=== PATIENT | male | born 1965 | race Caucasian/White ===

== ENCOUNTER 2018-11-09 10:09 | Emergency (ER) | payer SELFPAY ==
--- NOTE | 2018-11-09 10:37 | ER Document Report ---
ED General - General Chief Complaint: Leg Pain Stated Complaint: PAIN IN LEG Time Seen by Provider: 11/09/18 10:19 Primary Care Provider: [facility] [NO LOCAL MD] - Follow up in 3-5 days Mode of Arrival: Ambulatory Information source: Patient, [facility] Records Notes: 52-year-old male with no reported past medical history but does admit to a [id number] smoking history presents with complaint of right calf pain that started 1 year prior to arrival. Patient describes the pain as cramping, aching and worse with walking. Patient denies any leg swelling, leg injury, chest pain, shortness of breath, nausea, vomiting. He currently takes no medications. He has not seen a primary care physician in many years. Patient was seen at urgent care and they were concerned for lack of blood flow to the right lower extremity. TRAVEL OUTSIDE OF THE [place] IN LAST 30 DAYS: No - HPI Onset: Other Onset/Duration: Intermittent Quality of pain: Achy Severity: Mild Associated symptoms: Other - Pain with ambulation. denies: Chest pain, Nonproductive cough, Productive cough, Fever, Leg swelling, Nausea, Vomiting, Shortness of breath Exacerbated by: Walking Relieved by: Remaining still Similar symptoms previously: Yes Recently seen / treated by doctor: No - Related Data Allergies/Adverse Reactions: No Known Allergies Allergy (Verified 01/02/15 10:15) Past Medical History - General Information source: Patient - Social History Smoking Status: Current Every Day Smoker Cigarette use (# per day): Yes - 15 Smoking Education Provided: Yes - Smoking cessation counseling was provided for 4 minutes at the bedside Frequency of alcohol use: None Lives with: Family Family History: CAD - Father of an OK at age 47, mother had her first OK at age 63. He has 2 older brothers who do not have cardiac disease. Patient has suicidal ideation: No Patient has homicidal ideation: No - Medical History Medical History: Negative Renal/ Medical History: Denies: Hx Peritoneal Dialysis Past Surgical History: Reports: Hx Inguinal Hernia - [facility] Review of Systems - Review of Systems Notes: REVIEW OF SYSTEMS: CONSTITUTIONAL : Denies fever, chills, or sweats. Denies recent illness. Denies weight loss, recent hospitalizations. EENT: Denies visual changes, eye pain. Denies sore throat, oral lesions, difficulty swallowing. CARDIOVASCULAR: Denies chest pain. Denies palpitations. Denies lower extremity edema. RESPIRATORY: Denies cough. Denies shortness of breath, wheezing. GASTROINTESTINAL: Denies abdominal pain or distention. Denies nausea, vomiting, or diarrhea. Denies blood in vomitus, stools, or per rectum. Denies black, tarry stools. Denies constipation. GENITOURINARY: Denies difficulty urinating, painful urination, frequency, blood in urine, testicular pain or penile discharge. MUSCULOSKELETAL: Denies back or neck pain or stiffness. Denies joint pain or swelling.+ Calf pain SKIN: Denies rash, lesions or sores. HEMATOLOGIC : Denies easy bruising or bleeding. LYMPHATIC: Denies swollen glands. NEUROLOGICAL: Denies confusion or altered mental status. Denies loss of consciousness. Denies dizziness or lightheadedness. Denies headache. Denies weakness or paralysis. Denies problems difficulty with ambulation, slurred speech. Denies sensory loss, numbness, or tingling. Denies seizures. PSYCHIATRIC: Denies anxiety or stress. Denies depression, suicidal ideation, or Physical Exam - Vital signs Vitals: Temp Pulse Resp BP Pulse Ox 97.8 F 92 16 167/89 H 100 11/09/18 10:14 11/09/18 10:14 11/09/18 10:14 11/09/18 10:14 11/09/18 10:14 - Notes Notes: PHYSICAL EXAMINATION: GENERAL: Well-appearing, well-nourished and in no acute distress. HEAD: Atraumatic, normocephalic. EYES: Pupils equal round and reactive to light, extraocular movements intact, sclera anicteric, conjunctiva are normal. ENT: Nares patent, oropharynx clear without exudates. Moist mucous membranes. NECK: Normal range of motion, supple without lymphadenopathy LUNGS: Breath sounds clear to auscultation bilaterally and equal. No wheezes rales or rhonchi. HEART: Regular rate and rhythm without murmurs ABDOMEN: Soft, nontender, nondistended abdomen. No guarding, no rebound. No masses appreciated. Musculoskeletal: Normal range of motion, no pitting or edema. No cyanosis. Right calf-no swelling, erythema, pain with palpation. DP, PT pulse intact. Cap refill less than 2 seconds. No discoloration of the right foot or leg. NEUROLOGICAL: Cranial nerves grossly intact. Normal speech, normal gait. Normal sensory, motor exams PSYCH: Normal mood, normal affect. SKIN: Warm, Dry, normal turgor, no rashes or lesions noted. Course - Re-evaluation Re-evalutation: Temp Pulse Resp BP Pulse Ox 97.8 F 92 16 167/89 H 100 11/09/18 10:14 11/09/18 10:14 11/09/18 10:14 11/09/18 10:14 11/09/18 10:14 Extremity Arterial Study 11/09/18 10:28 IMPRESSION: Small vessel disease. No focal stenosis above the knee. Venous Doppler Study 11/09/18 10:28 IMPRESSION: NO EVIDENCE DVT OR SVT IN THE RIGHT LEG. 11/09/18 10:36 52-year-old male presents with 1 year of right calf pain that he states is worse with walking. He does have a significant 30 pack smoking history. He currently has no primary care physician or insurance. He denies any associated symptoms of leg swelling, history of DVT, PE. He denies shortness of breath or chest pain. 11/09/18 14:18 Arterial Doppler was obtained and showed blood flow throughout the leg although it goes from triphasic to monophasic at the foot. This is likely secondary to peripheral vascular disease, atherosclerosis secondary to extensive tobacco use. Patient urged to stop smoking. Social work consult was placed to help patient get into the community care in clinic. He does express interest in quitting smoking. Patient was evaluated and treated as appropriate for the patient's presenting symptoms and complaint, with consideration of any critical or life th reatening conditions that may be associated with their obtained history and exam as noted above. All results were discussed with patient . Patient provided the opportunity to ask questions, and express concerns. Patient was educated on treatments based on their presumed diagnosis as noted above. At this time we will discharge the patient with return precautions and follow-up recommendations. Verbal discharge instructions given a the bedside. Medication warnings reviewed. Patient is in agreement with this plan and has verbalized understanding of return precautions. After careful consideration I feel that that patient can be safely discharged from the emergency department, they were advised to followup with a primary care physician in 2-3 days. Dictation on this chart was performed using voice recognition software and may result in unintended grammatical, spelling, syntax or errors. 11/09/18 18:50 - Vital Signs Vital signs: Temp Pulse Resp BP Pulse Ox 97.8 F 78 20 155/92 H 100 11/09/18 10:14 11/09/18 14:27 11/09/18 14:27 11/09/18 14:27 11/09/18 14:27 - Laboratory Result Diagrams: 11/09/18 10:30 - Diagnostic Test Radiology reviewed: Image reviewed, Reports reviewed Discharge - Discharge Clinical Impression: Right leg pain, Peripheral vascular disease, Claudication of right lower extremity, Tobacco dependence, Elevated blood pressure reading Condition: Good Disposition: HOME, SELF-CARE Instructions: Peripheral Vascular Disease ([facility]) Additional Instructions: Follow up with your [id number] hours for further care or return to the ED IMMEDIATELY if symptoms worsen or you have any concerns. If you cannot afford to follow up with your primary care physician a list of low cost clinics have been provided at the end of your discharge papers as well. Most prescribed medications have multiple side effects. The safest thing to do is when filling your prescription speak to your pharmacist regarding possible interactions with your normal home medications and over the counter medications such as Ibuprofen, Tylenol, Benadryl. If you experience any symptoms that cause you discomfort or concern you should discontinue the medication immediately and return to the emergency room or call your primary care physician. A social work consult has been placed to try to help you find primary care. This condition will continue to worsen if you do not stop smoking. Forms: Elevated Blood Pressure, Smoking Cessation Education [facility]: [facility] [NO [facility]AL MD] - Follow up in 3-5 days
[2018-11-09 10:58] LABS: ANION GAP 9 (5-19); BLOOD UREA NITROGEN 13 mg/dL (7-20); CALCIUM 9.9 mg/dL (8.4-10.2); CARBON DIOXIDE 26 mmol/L (22-30); CHLORIDE 103 mmol/L (98-107); GLUCOSE 104 mg/dL (75-110); POTASSIUM 4.8 mmol/L (3.6-5.0); SODIUM 138.4 mmol/L (137-145)
[2018-11-09 14:30] VITALS: BP 155/92
--- NOTE | 2018-11-09 14:53 | RADIOLOGY REPORT (SQ) ---
EXAM DESCRIPTION: VENOUS UNILATERAL LOWER COMPLETED DATE/TIME: 11/09/2018 2:39 pm REASON FOR STUDY: calf pain COMPARISON: None. TECHNIQUE: Dynamic and static stanford scale and color images acquired of the right leg venous system. S elected spectral images acquired with additional compression and augmentation maneuvers. The contrala teral common femoral vein and saphenofemoral junction were also imaged. Images stored on PACS. LIMITATIONS: None. FINDINGS: COMMON FEMORAL: Normal phasicity, compression and augmentation. No visualized echogenic ma terial on stanford scale. No defects on color images. FEMORAL: Normal compression and augmentation. No visualized echogenic material on stanford scale. No defe cts on color images. POPLITEAL: Normal compression, augmentation. No visualized echogenic material on stanford scale. No defec ts on color images. CALF VESSELS: Normal compression, augmentation. No visualized echogenic material on stanford scale. No de fects on color images. GSV and SSV: Normal compression, augmentation. No visualized echogenic material on stanford scale. No def ects on color images. ANY DEEP VENOUS INSUFFICIENCY: Not evaluated. ANY EVIDENCE OF POPLITEAL CYST: No. OTHER: No other significant finding. CONTRALATERAL COMMON FEMORAL VEIN AND SAPHENOFEMORAL JUNCTION: Normal phasicity, compression and augmentation. No visualized echogenic material on stanford scale. No de fects on color images. IMPRESSION: NO EVIDENCE DVT OR SVT IN THE RIGHT LEG. TECHNICAL DOCUMENTATION: JOB ID: [id number] [employer]- All Rights Reserved Reading location - IP/workstation name: [email or web address]
--- NOTE | 2018-11-09 15:00 | RADIOLOGY REPORT (SQ) ---
EXAM DESCRIPTION: ARTERIAL LOWER EXTREM UNILAT COMPLETED DATE/TIME: 11/09/2018 2:39 pm REASON FOR STUDY: rle concern for decrease blood flow COMPARISON: None. TECHNIQUE: Dynamic and static stanford scale and color images acquired of the right lower extremity mervin jewel. Additional selected spectral images recorded. LIMITATIONS: None. FINDINGS: JIMMY not obtained. No inflow stenosis. No focal stenosis above the knee. There is 3 vess el runoff. Monophasic waveforms with spectral broadening in the dorsalis pedis. Left W[employer] MIXER is patent. IMPRESSION: Small vessel disease. No focal stenosis above the knee. COMMENT: [facility] NORMAL: Greater than 1.0 MINIMAL DISEASE: 0.9 to 1.0 CLAUDICATION: 0.5 to 0.9 SEVERE ARTERIAL DISEASE: Less than 0.5 [facility] NORMAL: Greater than 1.0 (1.2 If Heavy Calcifications) NORMAL TO MILD ISCHEMIA: 0.8 to 1.0 MODERATE ISCHEMIA: 0.4 to 0.8 SEVERE ISCHEMIA: Less than 0.4 TECHNICAL DOCUMENTATION: JOB ID: [id number] [employer]- All Rights Reserved Reading location - IP/workstation name: [email or web address]
== END 2018-11-09 14:27 | disposition home or self-care (01) ==
LOC: ER 10:09
DX: I73.9 Peripheral vascular disease, unspecified (principal); M79.661 Pain in right lower leg; R03.0 Elevated blood-pressure reading, without diagnosis of hypertension; F17.210 Nicotine dependence, cigarettes, uncomplicated; Z71.6 Tobacco abuse counseling; Z82.49 Family history of ischemic heart disease and other diseases of the circulatory system
CPT/HCPCS: 36415; 80048; 83735; 93926; 93971; 99284; 99406